=== PATIENT | female | born 2000 ===

== ENCOUNTER 2024-02-25 13:51 | Emergency (ER) | payer OTHER ==
[~2024-02-25] VITALS: Ht 172.7 cm; Wt 118.2 kg
[~2024-02-25 13:51] MED LIST: MOTRIN 800800 MG/TAB PO
[2024-02-25 14:26] VITALS: BP 140/83; TEMP 97.8
[2024-02-25 16:50] VITALS: PULSE 71
[2024-02-25] MEDS ORDERED: Ciprofloxacin 0.3% Ophth Soln 5 ML BOTTLE OT ONE (17:00)
== END 2024-02-25 16:50 | disposition home or self-care (01) ==
LOC: COL.ER 13:51
DX: H61.21 Impacted cerumen, right ear (principal)